=== PATIENT | female | born 1980 ===

== ENCOUNTER 2016-10-21 19:11 | Emergency (ER) | payer MEDICAID ==
[2016-10-21 19:31] VITALS: RESP 16; O2SAT 99
[2016-10-21] MEDS ORDERED: Sodium Chloride 0.9% 1,000 ML IV ONE (20:32)
[2016-10-21 20:46] LABS: SQUAMOUS EPITHIAL 15 /hpf (0-5); URINE BILIRUBIN NEGATIVE (NEGATIVE); URINE BLOOD NEGATIVE (NEGATIVE); URINE CLARITY Hazy (Clear); URINE COLOR Yellow (YELLOW); URINE GLUCOSE (UA) NORMAL (Normal); URINE LEUKOCYTE ESTERASE TRACE Leu/uL (Negative); URINE NITRATE NEGATIVE (NEGATIVE); URINE PROTEIN NEGATIVE (NEGATIVE); URINE UROBILINOGEN NORMAL mg/dL (0.2-1.0)
[2016-10-21 20:48] LABS: HCG,QUALITATIVE URINE NEGATIVE (NEGATIVE)
[2016-10-21 20:51] LABS: BASO % 0.4 % (0.0-2.0); EOS # 0.1 K/uL (0.0-0.7); EOS % 1.8 % (0.0-4.0); HEMOGLOBIN 13.8 g/dL (11.0-16.0); LYMPH # 2.2 K/uL (1.0-4.3); LYMPH % 27.1 % (20.0-40.0); MEAN CORPUSCULAR HGB CONC 33.7 g/dL (33.0-37.0); MEAN PLATELET VOLUME 8.6 fL (7.2-11.7); MONO # 0.5 K/uL (0.0-0.8); MONO % 6.1 % (0.0-10.0); NEUT # 5.3 K/uL (1.8-7.0); NEUT % 64.6 % (50.0-75.0); NRBC % 0.1 % (0.0-2.0); RBC 4.46 Mil/uL (3.80-5.20); WHITE BLOOD COUNT 8.2 K/uL (4.8-10.8)
[2016-10-21 20:59] LABS: ALBUMIN 4.4 g/dL (3.5-5.0)
[2016-10-21 21:02] LABS: ALB/GLOB RATIO 1.1 (1.0-2.1); AST/SGOT 124 U/L (14-36); BLOOD UREA NITROGEN 12 mg/dL (7-17); GFR AFRICAN-AMERICAN > 60; GFR NON-AFRICAN AMERICAN > 60
[2016-10-21 21:03] LABS: ALT/SGPT 251 U/L (9-52); CALCIUM 9.3 mg/dl (8.6-10.4); LIPASE 38 U/L (23-300)
--- NOTE | 2016-10-21 22:17 | C.PDOC ---
History Of Present Illness Pt was evaluated by her PMD a few days ago and had labs that showed elevated transaminase levels and US that showed gallstones. Pt c/o upper abdominal pain. 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 History/Exam Limitations: language barrier Onset/Duration Of Symptoms: Days (2) Current Symptoms Are (Timing): Still Present Severity: Moderate Location Of Pain/Discomfort: RUQ, Epigastric, LUQ Quality Of Discomfort: Unable To Describe, "Pain" Associated Symptoms: Nausea, Vomiting Exacerbating Factors: Food Alleviating Factors: None Additional History Per: Prior Records Past Medical History Reviewed: Historical Data, Nursing Documentation, Vital Signs Vital Signs: Last Vital Signs Temp 98.6 F 10/21/16 19:27 Pulse 98 H 10/21/16 19:27 Resp 16 10/21/16 19:27 BP 120/87 10/21/16 19:27 Pulse Ox 99 10/21/16 22:17 - Medical History PMH: Gall Bladder Disease, Hypercholesterolemia Surgical History: No Surg Hx Family History: States: Unknown Family Hx - Social History Hx Alcohol Use: No Hx Substance Use: No Review Of Systems Except As Marked, All Systems Reviewed And Found Negative. Constitutional: Negative for: Weakness Cardiovascular: Negative for: Chest Pain Respiratory: Negative for: Cough, Shortness of Breath Gastrointestinal: Positive for: Nausea, Vomiting, Abdominal Pain. Negative for : Diarrhea Genitourinary: Negative for: Dysuria Musculoskeletal: Negative for: Neck Pain Skin: Negative for: Rash Neurological: Negative for: Weakness, Numbness, Seizures, Altered Mental Status Physical Exam - Physical Exam Appears: Non-toxic, No Acute Distress Skin: Normal Color, Warm, Dry, No Rash Head: Atraumatic, Normacephalic Eye(s): bilateral: Normal Inspection, PERRL, EOMI Neck: Normal ROM, Supple Cardiovascular: Rhythm Regular Respiratory: Normal Breath Sounds, No Accessory Muscle Use Gastrointestinal/Abdominal: Soft, Tenderness (Upper abdomen), No Guarding, No Rebound Back: No CVA Tenderness Extremity: Normal ROM Neurological/Psych: Oriented x3, Normal Motor, Normal Sensation ED Course And Treatment - Laboratory Results Result Diagrams: 10/21/16 20:47 10/21/16 20:47 Lab Interpretation: Abnormal Interpretation Of Abnormal: Elevated transaminase levels Urine POC: Negative O2 Sat by Pulse Oximetry: 99 Pulse Ox Interpretation: Normal - CT Scan/US RUQ Sono Other Rad Studies (CT/US): Read By Radiologist, Radiology Report Reviewed CT/US Interpretation: IMPRESSION: 1. Cholelithiasis. 2. Hepatic steatosis. 3. Remainder of findings as above. Progress - Interventions Interventions:: Observation, Intravenous fluid - Medications Administered Intravenous: Antiemetic, H-2 natalee - Data Reviewed Data Reviewed: Lab, Diagnostic imaging, Old records - Patient Status Patient status: Mostly improved - Continuity of Care Discussed patient case with:: Patient, Family-HIPPA compliant, ED Nurse - Patient Plan Patient Plan: Discharge, F/U with PCP, Continue present meds Disposition Counseled Patient/Family Regarding: Studies Performed, Diagnosis, Need For Followup, Rx Given - Disposition Referrals: Cristel Barron MD [Medical Doctor] - Disposition: HOME/ ROUTINE Disposition Time: 23:14 Condition: IMPROVED Additional Instructions: Follow up with your doctor for further evaluation and treatment. Return to the ER if you develop fever, worsening of symptoms or if you have any other concerns. Prescriptions: Metoclopramide [Reglan] 1 tab PO TID PRN #15 tab PRN Reason: Nausea/Vomiting Pantoprazole Sodium [Protonix] 40 mg PO DAILY #14 ect Instructions: Non-Alcoholic Fatty Liver Disease (ED), Gallstones (ED) Print Language: LATVIAN - Clinical Impression Clinical Impression: Cholelithiasis, Fatty liver, Upper abdominal pain, Elevated transaminase level
--- NOTE | 2016-10-21 23:03 | US ---
EXAM: US Abdomen Limited, Right Upper Quadrant CLINICAL HISTORY: 35 years old, female; Pain; Abdominal pain; Epigastric; Additional info: Upper abd pain. H/o gallstones. TECHNIQUE: Real-time ultrasound of the right upper quadrant with image documentation. COMPARISON: No relevant prior studies available. FINDINGS: Liver: The liver measures 15.4 CM longitudinally. There is increased echogenicity consistent with fatty replacement. No intrahepatic bile duct dilation. Portal vein is patent with normal direction of flow. Gallbladder: Cholelithiasis. No gallbladder wall thickening. No sonographic Brown's sign. Common bile duct: Common bile duct measures 3 mm which is normal. No stones. No dilation. Pancreas: The pancreas is not visualized. Right kidney: Unremarkable. No stones. No solid mass. No hydronephrosis. Aorta: IVC and aorta are unremarkable. No aneurysm. IMPRESSION: 1. Cholelithiasis. 2. Hepatic steatosis. 3. Remainder of findings as above.
[2016-10-21 23:39] VITALS: BP 112/68; PULSE 91; TEMP 98
== END 2016-10-21 23:42 | disposition home or self-care (01) ==
LOC: C.ER 19:11
DX: K80.20 Calculus of gallbladder without cholecystitis without obstruction (principal); K76.0 Fatty (change of) liver, not elsewhere classified; R74.0 Nonspecific elevation of levels of transaminase and lactic acid dehydrogenase [LDH]
CPT/HCPCS: 76705; 80053; 81001; 83690; 84703; 85025; 96361; 96374; 96375; 99284; J2765; J7040

== ENCOUNTER 2017-01-08 19:25 | Observation (INO) | payer MEDICAID ==
[2017-01-08] MEDS ORDERED: Sodium Chloride 0.9% 1,000 ML IV ONE (19:58)
--- NOTE | 2017-01-08 19:58 | C.PDOC ---
History Of Present Illness Patient with history of gallstones presents to the ED with complaints of RUQ pain with associated nausea and vomiting that has been worsening over the last several days. Patient was seen at another hospital and had a full work up performed. She also presented to [facility] ED with similar presentation, US showed gallstones. Patient denies fever, chills, or diarrhea. Time Seen by Provider: 01/08/17 19:57 Chief Complaint (Nursing): Abdominal Pain History Per: Patient History/Exam Limitations: no limitations Onset/Duration Of Symptoms: Persistent, Worse Since (several days ) Current Symptoms Are (Timing): Still Present Severity: Moderate Pain Scale Rating Of: 5 Location Of Pain/Discomfort: RUQ Radiation Of Pain To:: None Quality Of Discomfort: "Pain" Past Medical History Reviewed: Historical Data, Nursing Documentation, Vital Signs Vital Signs: Last Vital Signs Temp 97.8 F 01/08/17 23:06 Pulse 86 01/08/17 23:06 Resp 20 01/08/17 23:06 BP 124/82 01/08/17 23:06 Pulse Ox 99 01/08/17 23:06 - Medical History PMH: Gall Bladder Disease, Hypercholesterolemia Family History: States: Unknown Family Hx - Social History Hx Alcohol Use: No Hx Substance Use: No Review Of Systems Constitutional: Negative for: Fever, Chills Cardiovascular: Negative for: Chest Pain Gastrointestinal: Positive for: Nausea, Vomiting, Abdominal Pain. Negative for : Diarrhea Physical Exam - Physical Exam Appears: Non-toxic, No Acute Distress Skin: Warm, Dry Head: Atraumatic Eye(s): bilateral: Normal Inspection Oral Mucosa: Moist Neck: Supple Chest: Symmetrical, No Deformity Cardiovascular: Rhythm Regular, No Murmur Respiratory: No Rales, No Rhonchi, No Wheezing Gastrointestinal/Abdominal: Bowel Sounds (good bowel sounds ), Soft, No Tenderness, No Distention, No Guarding, Rebound (mild rebound ) Back: No CVA Tenderness Extremity: Normal ROM, No Tenderness Extremity: Bilateral: Atraumatic Pulses: Left Dorsalis Pedis: Normal, Right Dorsalis Pedis: Normal Neurological/Psych: Oriented x3 Gait: Steady ED Course And Treatment - Laboratory Results Result Diagrams: 01/08/17 20:17 01/08/17 20:17 O2 Sat by Pulse Oximetry: 99 (RA) Disposition Discussed With : Lance Long Comment: accepted the pt on rv and took over the care at 1AM Doctor Will See Patient In The: ED Counseled Patient/Family Regarding: Studies Performed, Diagnosis - Disposition Disposition: HOSPITALIZED Disposition Time: 19:58 Condition: FAIR Forms: [facility] (Belizean) - Clinical Impression Clinical Impression: Abdominal pain, Cholelithiasis - Scribe Statement The provider has reviewed the documentation as recorded by the Scribe Veronica Tao All medical record entries made by the Scribe were at my direction and personally dictated by me. I have reviewed the chart and agree that the record accurately reflects my personal performance of the history, physical exam, medical decision making, and the department course for this patient. I have also personally directed, reviewed, and agree with the discharge instructions and disposition. Decision To Admit - Pt Status Changed To: Hospital Disposition Of: Inpatient - Admit Certification Admit to Inpatient:: After my assessment, the patient will require hospitalization for at least two midnights. This is because of the severity of symptoms shown, intensity of services needed, and/or the medical risk in this patient being treated as an outpatient. - InPatient: Physician Admission Certification:: After my assessment, the patient will require hospitalization for at least two midnights. This is because of the severity of symptoms shown, intensity of services needed, and/or the medical risk in this patient being treated as an outpatient. - . Bed Request Type: Regular Admitting Physician: Lance Long Patient Diagnosis: Abdominal pain, Cholelithiasis
[2017-01-08 20:28] LABS: BASO % 0.5 % (0.0-2.0); EOS # 0.1 K/uL (0.0-0.7); HEMATOCRIT 39.4 % (34.0-47.0); LYMPH % 19.5 % (20.0-40.0); MEAN CELL VOLUME 91.1 fL (81.0-99.0); MEAN CORPUSCULAR HEMOGLOBIN 31.8 pg (27.0-31.0); MEAN CORPUSCULAR HGB CONC 34.9 g/dL (33.0-37.0); MEAN PLATELET VOLUME 8.4 fL (7.2-11.7); MONO # 0.7 K/uL (0.0-0.8); MONO % 6.6 % (0.0-10.0); RED CELL DISTRIBUTION WIDTH 13.2 % (11.5-14.5); WHITE BLOOD COUNT 10.1 K/uL (4.8-10.8)
[2017-01-08 20:29] LABS: CHLORIDE 99 mmol/L (98-107)
[2017-01-08 20:30] LABS: POTASSIUM 3.7 mmol/L (3.6-5.2); SODIUM 138 mmol/L (132-148)
[2017-01-08 20:32] LABS: ALB/GLOB RATIO 1.3 (1.0-2.1); ALKALINE PHOSPHATASE 75 U/L (38-126); ALT/SGPT 122 U/L (9-52); AST/SGOT 55 U/L (14-36); BILIRUBIN,TOTAL 0.7 mg/dL (0.2-1.3); BLOOD UREA NITROGEN 11 mg/dL (7-17); CARBON DIOXIDE 24 mmol/L (22-30); GFR AFRICAN-AMERICAN > 60; GLUCOSE,RANDOM 80 mg/dL (65-105); TOTAL PROTEIN 7.6 g/dL (6.3-8.3)
[2017-01-08 20:33] LABS: CALCIUM 8.5 mg/dl (8.6-10.4)
[2017-01-08 20:40] LABS: RBC URINE 3 /hpf (0-3); URINE BACTERIA OCC (<OCC); URINE BILIRUBIN NEGATIVE (NEGATIVE); URINE COLOR Yellow (YELLOW); URINE GLUCOSE (UA) NORMAL (Normal); URINE KETONE NEGATIVE (NEGATIVE); URINE LEUKOCYTE ESTERASE TRACE Leu/uL (Negative); URINE PROTEIN NEGATIVE (NEGATIVE); URINE UROBILINOGEN NORMAL mg/dL (0.2-1.0); WBC URINE 4 /hpf (0-5)
[2017-01-08 20:41] LABS: INR 1.1
[2017-01-08 20:46] LABS: URINE BLOOD TRACE (NEGATIVE)
[2017-01-08] MEDS ORDERED: Sodium Chloride 0.9% 100 ML ONE (21:21)
--- NOTE | 2017-01-08 22:41 | US ---
EXAM: US Abdomen Limited, Right Upper Quadrant CLINICAL HISTORY: 36 years old, female; Pain; Abdominal pain; Flank; Right upper quadrant (ruq); Additional info: Ruq pain, HX of gallstones TECHNIQUE: Real-time ultrasound of the right upper quadrant with image documentation. COMPARISON: No relevant prior studies available. FINDINGS: Liver: The liver is increased in echogenicity and size measuring 16.9 cm in longitudinal dimension. No intrahepatic bile duct dilation. Gallbladder: Multiple stones are identified within the decompressed gallbladder, which is otherwise unremarkable. Common bile duct: No stones. No dilation, measuring 4.6 mm. Pancreas: Visualization of the pancreas is limited by overlying bowel gas. Right kidney: Unremarkable in echogenicity and size measuring 12.0 x 4.4 x 5.5 cm. No obstructing stones. No solid mass. No hydronephrosis. IMPRESSION: Fatty infiltration of an enlarged liver. Cholelithiasis. Otherwise, unremarkable sonographic evaluation of the right upper quadrant, as detailed above. Limited evaluation of the pancreas, secondary to overlying bowel gas.
[2017-01-08] MEDS ORDERED: Lactated Ringer's 1,000 ML IV SCH (23:45)
[2017-01-08] MEDS ORDERED: Morphine 4 MG/ML VIAL IVP PRN (23:50)
--- NOTE | 2017-01-09 00:37 | CP.PCM.HP ---
<Ella Woodward - Last Filed: 01/09/17 00:32> History of Present Illness - History of Present Illness History of Present Illness: CC: RUQ abdominal pain, nausea, vomiting Patient is a 36F who denies significant PMH who was sent to the ER by her primary physician for evaluation for cholecystitis. Patient reports intermittent RUQ pain and nausea with eating greasy food for 6 months, worsening severely of past two days. Patient states the pain is cramping in nature and she has had nausea, multiple episodes of non-bilious emesis and diarrhea over the past two days. Patient states there is a small amount of blood in her emesis after she had emptied her stomach. Patient also report heartburn like symptoms. Patient denies hematochezia, melena, fevers, chills, chest pain, SOB, cough, dysuria, hematuria, or any other symptoms. Pmh: denies PSH: denies All: denies Present on Admission - Present on Admission Any Indicators Present on Admission: No Review of Systems - Review of Systems All systems: reviewed and no additional remarkable complaints except (as per HPI ) - Constitutional Constitutional: Anorexia. absent: Chills, Fever - Cardiovascular Cardiovascular: absent: Chest Pain, Chest Pain at Rest, Dyspnea - Respiratory Respiratory: absent: Cough, Dyspnea, Dyspnea on Exertion - Gastrointestinal Gastrointestinal: Abdominal Pain, Cramping, Diarrhea, Heartburn, Nausea, Vomiting. absent: Coffee Ground Emesis, Constipation, Hematochezia, Melena - Genitourinary Genitourinary: absent: Change in Urinary Stream, Dysuria, Hematuria - Musculoskeletal Musculoskeletal: Back Pain (right mid-low back pain). absent: Numbness, Tingling - Neurological Neurological: absent: Numbness, Tingling, Weakness - Psychiatric Psychiatric: absent: Anxiety Past Patient History - Past Medical History & Family History Past Medical History?: Yes Past Family History: Reviewed and not pertinent - Past Social History Smoking Status: Never Smoked - CARDIAC Hx Hypercholesterolemia: Yes - PULMONARY Hx Respiratory Disorders: No - NEUROLOGICAL Hx Neurological Disorder: No - HEENT Hx HEENT Problems: No - RENAL Hx Chronic Kidney Disease: No - ENDOCRINE/METABOLIC Hx Endocrine Disorders: No - HEMATOLOGICAL/ONCOLOGICAL Hx Blood Disorders: No - INTEGUMENTARY Hx Dermatological Problems: No - MUSCULOSKELETAL/RHEUMATOLOGICAL Hx Musculoskeletal Disorders: No - GASTROINTESTINAL Hx Gall Bladder Disease: Yes - PSYCHIATRIC Hx Substance Use: No Meds Allergies/Adverse Reactions: Allergies Allergy/AdvReac Type Severity Reaction Status Date / Time No Known Allergies Allergy Unverified 10/21/16 19:31 Physical Exam - Constitutional Appears: Non-toxic, No Acute Distress - Head Exam Head Exam: ATRAUMATIC, NORMOCEPHALIC - Eye Exam Eye Exam: Normal appearance. absent: Conjunctival injection, Scleral icterus - ENT Exam ENT Exam: Mucous Membranes Moist, Normal Oropharynx - Respiratory Exam Respiratory Exam: NORMAL BREATHING PATTERN. absent: Accessory Muscle Use, Respiratory Distress - Cardiovascular Exam Cardiovascular Exam: RRR - GI/Abdominal Exam GI & Abdominal Exam: Soft, Tenderness (RUQ>epigastrium. ). absent: Distended, Mass, Rebound Additional comments: positive eli's sign - Extremities Exam Extremities exam: Positive for: pedal pulses present. Negative for: calf tenderness, pedal edema - Back Exam Back exam: NORMAL INSPECTION. absent: CVA tenderness (L), CVA tenderness (R) - Neurological Exam Neurological exam: Alert, Oriented x3 - Psychiatric Exam Psychiatric exam: Normal Affect, Normal Mood - Skin Skin Exam: Dry, Intact, Normal Color, Warm Results - Vital Signs Recent Vital Signs: Last Vital Signs Temp 97.8 F 01/08/17 23:06 Pulse 86 01/08/17 23:06 Resp 20 01/08/17 23:06 BP 124/82 01/08/17 23:06 Pulse Ox 99 01/08/17 23:06 - Labs Result Diagrams: 01/08/17 20:17 01/08/17 20:17 Labs: Laboratory Results - last 24 hr 01/08/17 01/08/17 01/08/17 20:05 20:17 20:17 WBC 10.1 RBC 4.32 Hgb 13.8 Hct 39.4 MCV 91.1 MCH 31.8 H MCHC 34.9 RDW 13.2 Plt Count 230 MPV 8.4 Neut % (Auto) 72.4 Lymph % (Auto) 19.5 L Knox % (Auto) 6.6 Eos % (Auto) 1.0 Baso % (Auto) 0.5 Neut # 7.3 H Lymph # 2.0 Knox # 0.7 Eos # 0.1 Baso # 0.0 PT 12.7 H INR 1.1 APTT 33 Sodium Potassium Chloride Carbon Dioxide Anion Gap BUN Creatinine Est GFR ( Amer) Est GFR (Non-Af Amer) Random Glucose Calcium Total Bilirubin AST ALT Alkaline Phosphatase Total Protein Albumin Globulin Albumin/Globulin Ratio Lipase Urine Color Yellow Urine Clarity Hazy Urine pH 5.0 Ur Specific [place] 1.013 Urine Protein Negative Urine Glucose (UA) Normal Urine Ketones Negative Urine Blood Trace H Urine Nitrate Negative Urine Bilirubin Negative Urine Urobilinogen Normal Ur Leukocyte Esterase Trace Urine WBC (Auto) 4 Urine RBC (Auto) 3 Ur Squamous Epith Cells 9 H Urine Bacteria Occ H Urine HCG, Qual Negative 01/08/17 20:17 WBC RBC Hgb Hct MCV MCH MCHC RDW Plt Count MPV Neut % (Auto) Lymph % (Auto) Knox % (Auto) Eos % (Auto) Baso % (Auto) Neut # Lymph # Knox # Eos # Baso # PT INR APTT Sodium 138 Potassium 3.7 Chloride 99 Carbon Dioxide 24 Anion Gap 19 BUN 11 Creatinine 0.6 L Est GFR ( Amer) > 60 Est GFR (Non-Af Amer) > 60 Random Glucose 80 Calcium 8.5 L Total Bilirubin 0.7 AST 55 H ALT 122 H D Alkaline Phosphatase 75 Total Protein 7.6 Albumin 4.3 Globulin 3.3 Albumin/Globulin Ratio 1.3 Lipase 26 Urine Color Urine Clarity Urine pH Ur Specific [place] Urine Protein Urine Glucose (UA) Urine Ketones Urine Blood Urine Nitrate Urine Bilirubin Urine Urobilinogen Ur Leukocyte Esterase Urine WBC (Auto) Urine RBC (Auto) Ur Squamous Epith Cells Urine Bacteria Urine HCG, Qual Assessment & Plan - Assessment and Plan (Free Text) Assessment: 36F with no signfican PMH or PSH with RUQ pain and vomiting, Acute cholecystits vs. exacerbation of chronic biliary colic vs. gastroenteritis Plan: - given US findings of gallstones and mild pericholecystic fluid and patient's clinical history, acute cholecystits is likely - Admit under observation for IV antibiotics, fluid resuscitation, and possible OR - Keep patient NPO - IVF - PRN pain and nausea medication - Replete electrolytes as needed - Trend CBC/CMP - Further recs regarding possible OR for cholecystectomy per Dr. Mercedes Woodward, PGY2 <Lance Long - Last Filed: 01/14/17 18:00> Results - Vital Signs Recent Vital Signs: Last Vital Signs Temp 98.1 F 01/09/17 15:00 Pulse 93 H 01/09/17 15:00 Resp 20 01/09/17 15:00 BP 153/70 H 01/09/17 15:00 Pulse Ox 97 01/09/17 15:00 - Labs Result Diagrams: 01/09/17 06:23 01/09/17 06:23 Attending/Attestation - Attestation I have personally seen and examined this patient.: Yes I have fully participated in the care of the patient.: Yes I have reviewed all pertinent clinical information: Yes Notes (Text): 01/14/17 17:58 Pt was seen and examined at bedside Pt with Gallstones and Gastroenteritis HIDA scan is negative for Cholecystitis Abdomen soft, mild tender Hospitalist consult appreciated Pt can be DC home on Po antibiotics f.u with PMD No need for any surgical intervention at present Plan d.w pt in detail Risk and benefit explained in detail.
[2017-01-09] MEDS ORDERED: Piperacillin/Tazobact 3.375 gm 100 ML IVPB ONE (01:00)
[2017-01-09] MEDS ORDERED: Lactated Ringer's 1,000 ML ONE (01:00)
[2017-01-09] MEDS: Piperacillin/Tazobact 3.375 GM in Sodium Chloride 100 ML IVPB SCH ×3 (01:11→12:01)
[2017-01-09 03:41] VITALS: RESP 20
[2017-01-09 07:30] LABS: BASO % 0.3 % (0.0-2.0); EOS % 1.5 % (0.0-4.0); HEMATOCRIT 37.3 % (34.0-47.0); LYMPH % 26.1 % (20.0-40.0); MEAN CELL VOLUME 92.2 fL (81.0-99.0); MEAN CORPUSCULAR HEMOGLOBIN 32.1 pg (27.0-31.0); MEAN CORPUSCULAR HGB CONC 34.9 g/dL (33.0-37.0); MEAN PLATELET VOLUME 8.9 fL (7.2-11.7); MONO % 7.3 % (0.0-10.0); RED CELL DISTRIBUTION WIDTH 13.2 % (11.5-14.5); WHITE BLOOD COUNT 7.9 K/uL (4.8-10.8)
[2017-01-09 07:31] LABS: EOS # 0.1 K/uL (0.0-0.7); MONO # 0.6 K/uL (0.0-0.8)
[2017-01-09 09:31] LABS: CHLORIDE 103 mmol/L (98-107); POTASSIUM 3.9 mmol/L (3.6-5.2); SODIUM 141 mmol/L (132-148)
[2017-01-09 09:33] LABS: AST/SGOT 62 U/L (14-36); BILIRUBIN,TOTAL 0.9 mg/dL (0.2-1.3); CARBON DIOXIDE 23 mmol/L (22-30); GFR AFRICAN-AMERICAN > 60
[2017-01-09 09:34] LABS: ALKALINE PHOSPHATASE 75 U/L (38-126); ALT/SGPT 111 U/L (9-52); BLOOD UREA NITROGEN 10 mg/dL (7-17); CALCIUM 8.6 mg/dl (8.6-10.4); GLUCOSE,RANDOM 102 mg/dL (65-105); TOTAL PROTEIN 7.7 g/dL (6.3-8.3)
--- NOTE | 2017-01-09 11:36 | NM ---
PROCEDURE: Nuclear Medicine Hepatobiliary Scan HISTORY: ruq pain, cholelithiasis COMPARISON: None available. TECHNIQUE: 5.1 mCi of technetium 99m Mebrofenin was administered intravenously. Planar images of the abdomen were obtained at 5 min intervals to 60 mins. Delayed images were also obtained. FINDINGS: LIVER: Timely and homogenous uptake. COMMON BILE DUCT: identified at 15 mins. GALLBLADDER: identified at 10 mins. SMALL BOWEL: Identified at 15 mins. IMPRESSION: Normal Hepatobiliary Scan. The cystic duct is patent.
--- NOTE | 2017-01-09 13:23 | CP.PCM.PN ---
Addendum entered and electronically signed by Fiorella Gardiner DO 01/09/17 15:04: please disregard and read Consult note for Dr. Davon Hicks Original Note: Subjective - Date & Time of Evaluation Date of Evaluation: 01/09/17 Time of Evaluation: 13:36 - Subjective Subjective: Internal Medicine Consult for Dr. Hicks 36 y/o female patient presents with abdominal pain x2 days with no past medical history. Pt was instructed by PMD to come to ED due to extreme pain in RUQ. Pt stated she has had abdominal discomfort for the past 6 months when eating fatty foods. Pt complains of nausea that started two days ago. Pt stated she vomited for two days before arrival at hospital. Pt stated there was one incident of blood-tinged vomit. Pt stated she had not been able to eat for two days. Patient also mentions having several bowel movement of small stool today described as normal in color, just small in caliber. Pt denied diarrhea. PMH: Denied PSH: Denied Social Hx: Denied tobacco, alcohol, and illicit drug use Family Hx: mother diabetes, grandmother cancer Allergies: NKDA PMD: Dr. Motley in [place] Objective - Vital Signs/Intake and Output Vital Signs (last 24 hours): Temp Pulse Resp BP Pulse Ox 98.2 F 75 20 108/71 98 01/09/17 07:05 01/09/17 07:05 01/09/17 07:05 01/09/17 07:05 01/09/17 07:05 Intake and Output: 01/09/17 01/09/17 06:59 18:59 Intake Total 1500 Output Total 200 Balance 1300 - Medications Medications: Current Medications Acetaminophen (Tylenol 325mg Tab) 650 mg PO Q6 PRN PRN Reason: Fever >100.4 F Lactated Ringer's (Lactated Ringer's) 1,000 mls @ 100 mls/hr IV .Q10H MARCUS Stop: 01/10/17 23:46 Last Admin: 01/09/17 01:10 Dose: 100 mls/hr Piperacillin Sod/Tazobactam (Sod 3.375 gm/ Sodium Chloride) 100 mls @ 200 mls/ hr IVPB Q6H MARCUS Last Admin: 01/09/17 12:01 Dose: 200 mls/hr Metoclopramide HCl (Reglan) 10 mg IVP Q6 PRN PRN Reason: Nausea/Vomiting Morphine Sulfate (Morphine) 6 mg IVP STAT PRN PRN Reason: Pain, severe (8-10) Morphine Sulfate (Morphine) 4 mg IVP Q4 PRN PRN Reason: Pain, moderate (4-7) Pantoprazole Sodium (Protonix Inj) 40 mg IVP Q12H MARCUS Last Admin: 01/09/17 12:14 Dose: 40 mg Pneumococcal Polyvalent Vaccine (Pneumovax 23 Vaccine) 0.5 ml IM .ONCE ONE Stop: 01/12/17 10:01 - Labs Labs: 01/09/17 06:23 01/09/17 06:23 PT 12.7 SECONDS (9.7-12.2) H 01/08/17 20:17 INR 1.1 01/08/17 20: APTT 33 SECONDS (21-34) 01/08/17 20:17 - Constitutional Appears: Non-toxic - Head Exam Head Exam: NORMAL INSPECTION - Eye Exam Eye Exam: EOMI - ENT Exam ENT Exam: Mucous Membranes Moist - Neck Exam Neck Exam: Full ROM. absent: Tenderness - Respiratory Exam Respiratory Exam: NORMAL BREATHING PATTERN. absent: Accessory Muscle Use, Respiratory Distress - Cardiovascular Exam Cardiovascular Exam: REGULAR RHYTHM, +S1, +S2. absent: Bradycardia, Tachycardia - GI/Abdominal Exam GI & Abdominal Exam: Soft. absent: Tenderness - Extremities Exam Extremities Exam: Full ROM. absent: Pedal Edema - Neurological Exam Neurological Exam: Alert, Awake, CN II-XII Intact, Oriented x3 - Psychiatric Exam Psychiatric exam: Normal Affect, Normal Mood - Skin Skin Exam: Dry, Intact, Normal Color, Warm Assessment and Plan - Assessment and Plan (Free Text) Assessment: Gastritis? fluid hydration, monitor nausea and vomiting advance diet per primary, current diet: Regular fluid hydration: LR @ 100 Biliary colic monitor LFTs negative HIDA cholelithiasis on abdominal US Mid-epigastric pain to back stat lipase follow up Frequency of stool, increased. small caliber, normal in color and consistency follow up stool studies ova and parasites times 3 fecal leukocytes c diff toxin f/u stool culture, gram stain Pain consider administration of zofran prior to giving pain medication to decrease nausea Morphine may exacerbate nausea symptoms Fiorella Gardiner, DO PGY1
--- NOTE | 2017-01-09 15:03 | CP.PCM.CON ---
Addendum entered and electronically signed by Fiorella Gardiner DO 01/09/17 15:48: Bananas Rice Apple Sauce Whole Wheat toast Cleared for discharge on our perspective. Dr. Hicks spoke with Dr. Long, and Nurse Nataly patient is tolerating diet. Patient states she had watery diarrhea, but is stable for discharge. Original Note: <Fiorella Gardiner - Last Filed: 01/09/17 15:03> History of Present Illness - History of Present Illness History of Present Illness: Internal Medicine Consult for Dr. Hicks 36 y/o female patient presents with abdominal pain x2 days with no past medical history. Pt was instructed by PMD to come to ED due to extreme pain in RUQ. Pt stated she has had abdominal discomfort for the past 6 months when eating fatty foods. Pt complains of nausea that started two days ago. Pt stated she vomited for two days before arrival at hospital. Pt stated there was one incident of blood-tinged vomit. Pt stated she had not been able to eat for two days. Patient also mentions having several bowel movement of small stool today described as normal in color, just small in caliber. Pt denied diarrhea. PMH: Denied PSH: Denied Social Hx: Denied tobacco, alcohol, and illicit drug use Family Hx: mother diabetes, grandmother cancer Allergies: NKDA PMD: Dr. Motley in [place] Past Patient History - Past Medical History & Family History Past Medical History?: Yes - Past Social History Smoking Status: Never Smoked - CARDIAC Hx Cardiac Disorders: Yes Hx Hypercholesterolemia: Yes - PULMONARY Hx Respiratory Disorders: No - NEUROLOGICAL Hx Neurological Disorder: No - HEENT Hx HEENT Problems: No - RENAL Hx Chronic Kidney Disease: No - ENDOCRINE/METABOLIC Hx Endocrine Disorders: No - HEMATOLOGICAL/ONCOLOGICAL Hx Blood Disorders: No - INTEGUMENTARY Hx Dermatological Problems: No - MUSCULOSKELETAL/RHEUMATOLOGICAL Hx Musculoskeletal Disorders: No Hx Falls: No - GASTROINTESTINAL Hx Gastrointestinal Disorders: Yes Hx Gall Bladder Disease: Yes - GENITOURINARY/GYNECOLOGICAL Hx Genitourinary Disorders: No - PSYCHIATRIC Hx Psychophysiologic Disorder: No Hx Substance Use: No - SURGICAL HISTORY Hx Surgeries: No - ANESTHESIA Hx Anesthesia: No Hx Anesthesia Reactions: No Hx Malignant Hyperthermia: No Has any member of the family had a problem w/ anesthesia?: No Meds Allergies/Adverse Reactions: Allergies Allergy/AdvReac Type Severity Reaction Status Date / Time No Known Allergies Allergy Unverified 10/21/16 19:31 - Medications Medications: Current Medications Acetaminophen (Tylenol 325mg Tab) 650 mg PO Q6 PRN PRN Reason: Fever >100.4 F Lactated Ringer's (Lactated Ringer's) 1,000 mls @ 100 mls/hr IV .Q10H [facility] Stop: 01/10/17 23:46 Last Admin: 01/09/17 01:10 Dose: 100 mls/hr Piperacillin Sod/Tazobactam (Sod 3.375 gm/ Sodium Chloride) 100 mls @ 200 mls/ hr IVPB Q6H [facility] Last Admin: 01/09/17 12:01 Dose: 200 mls/hr Metoclopramide HCl (Reglan) 10 mg IVP Q6 PRN PRN Reason: Nausea/Vomiting Morphine Sulfate (Morphine) 6 mg IVP STAT PRN PRN Reason: Pain, severe (8-10) Morphine Sulfate (Morphine) 4 mg IVP Q4 PRN PRN Reason: Pain, moderate (4-7) Pantoprazole Sodium (Protonix Inj) 40 mg IVP Q12H [facility] Last Admin: 01/09/17 12:14 Dose: 40 mg Pneumococcal Polyvalent Vaccine (Pneumovax 23 Vaccine) 0.5 ml IM .ONCE ONE Stop: 01/12/17 10:01 Physical Exam - Additional Findings Additional findings: - Constitutional Appears: Non-toxic - Head Exam Head Exam: NORMAL INSPECTION - Eye Exam Eye Exam: EOMI - ENT Exam ENT Exam: Mucous Membranes Moist - Neck Exam Neck Exam: Full ROM. absent: Tenderness - Respiratory Exam Respiratory Exam: NORMAL BREATHING PATTERN. absent: Accessory Muscle Use, Respiratory Distress - Cardiovascular Exam Cardiovascular Exam: REGULAR RHYTHM, +S1, +S2. absent: Bradycardia, Tachycardia - GI/Abdominal Exam GI & Abdominal Exam: Soft. absent: Tenderness - Extremities Exam Extremities Exam: Full ROM. absent: Pedal Edema - Neurological Exam Neurological Exam: Alert, Awake, CN II-XII Intact, Oriented x3 - Psychiatric Exam Psychiatric exam: Normal Affect, Normal Mood - Skin Skin Exam: Dry, Intact, Normal Color, Warm Results - Vital Signs Recent Vital Signs: Last Vital Signs Temp 98.2 F 01/09/17 07:05 Pulse 75 01/09/17 07:05 Resp 20 01/09/17 07:05 BP 108/71 01/09/17 07:05 Pulse Ox 98 01/09/17 07:05 - Labs Result Diagrams: 01/09/17 06:23 01/09/17 06:23 Labs: Laboratory Results - last 24 hr 01/08/17 01/08/17 01/08/17 20:05 20:17 20:17 WBC 10.1 RBC 4.32 Hgb 13.8 Hct 39.4 MCV 91.1 MCH 31.8 H MCHC 34.9 RDW 13.2 Plt Count 230 MPV 8.4 Neut % (Auto) 72.4 Lymph % (Auto) 19.5 L [place] % (Auto) 6.6 Eos % (Auto) 1.0 Baso % (Auto) 0.5 Neut # 7.3 H Lymph # 2.0 [place] # 0.7 Eos # 0.1 Baso # 0.0 PT 12.7 H INR 1.1 APTT 33 Sodium Potassium Chloride Carbon Dioxide Anion Gap BUN Creatinine Est GFR ( Amer) Est GFR (Non-Af Amer) Random Glucose Calcium Total Bilirubin AST ALT Alkaline Phosphatase Total Protein Albumin Globulin Albumin/Globulin Ratio Lipase Urine Color Yellow Urine Clarity Hazy Urine pH 5.0 Ur Specific [place] 1.013 Urine Protein Negative Urine Glucose (UA) Normal Urine Ketones Negative Urine Blood Trace H Urine Nitrate Negative Urine Bilirubin Negative Urine Urobilinogen Normal Ur Leukocyte Esterase Trace Urine WBC (Auto) 4 Urine RBC (Auto) 3 Ur Squamous Epith Cells 9 H Urine Bacteria Occ H Urine HCG, Qual Negative Blood Type Antibody Screen 01/08/17 01/09/17 01/09/17 20:17 06:23 06:23 WBC 7.9 RBC 4.05 Hgb 13.0 Hct 37.3 MCV 92.2 MCH 32.1 H MCHC 34.9 RDW 13.2 Plt Count 221 MPV 8.9 Neut % (Auto) 64.8 Lymph % (Auto) 26.1 [place] % (Auto) 7.3 Eos % (Auto) 1.5 Baso % (Auto) 0.3 Neut # 5.1 Lymph # 2.0 [place] # 0.6 Eos # 0.1 Baso # 0.0 PT INR APTT Sodium 138 Potassium 3.7 Chloride 99 Carbon Dioxide 24 Anion Gap 19 BUN 11 Creatinine 0.6 L Est GFR ( Amer) > 60 Est GFR (Non-Af Amer) > 60 Random Glucose 80 Calcium 8.5 L Total Bilirubin 0.7 AST 55 H ALT 122 H D Alkaline Phosphatase 75 Total Protein 7.6 Albumin 4.3 Globulin 3.3 Albumin/Globulin Ratio 1.3 Lipase 26 Urine Color Urine Clarity Urine pH Ur Specific [place] Urine Protein Urine Glucose (UA) Urine Ketones Urine Blood Urine Nitrate Urine Bilirubin Urine Urobilinogen Ur Leukocyte Esterase Urine WBC (Auto) Urine RBC (Auto) Ur Squamous Epith Cells Urine Bacteria Urine HCG, Qual Blood Type O POSITIVE Antibody Screen Negative 01/09/17 06:23 WBC RBC Hgb Hct MCV MCH MCHC RDW Plt Count MPV Neut % (Auto) Lymph % (Auto) [place] % (Auto) Eos % (Auto) Baso % (Auto) Neut # Lymph # [place] # Eos # Baso # PT INR APTT Sodium 141 Potassium 3.9 Chloride 103 Carbon Dioxide 23 Anion Gap 20 BUN 10 Creatinine 0.7 Est GFR ( Amer) > 60 Est GFR (Non-Af Amer) > 60 Random Glucose 102 Calcium 8.6 Total Bilirubin 0.9 AST 62 H ALT 111 H Alkaline Phosphatase 75 Total Protein 7.7 Albumin 3.9 Globulin 3.8 Albumin/Globulin Ratio 1.0 Lipase Urine Color Urine Clarity Urine pH Ur Specific [place] Urine Protein Urine Glucose (UA) Urine Ketones Urine Blood Urine Nitrate Urine Bilirubin Urine Urobilinogen Ur Leukocyte Esterase Urine WBC (Auto) Urine RBC (Auto) Ur Squamous Epith Cells Urine Bacteria Urine HCG, Qual Blood Type Antibody Screen Assessment & Plan - Assessment and Plan (Free Text) Assessment: Gastritis? fluid hydration, monitor nausea and vomiting advance diet per primary, current diet: Regular fluid hydration: LR @ 100 Biliary colic monitor LFTs negative HIDA cholelithiasis on abdominal US Mid-epigastric pain to back stat lipase follow up Frequency of stool, increased. small caliber, normal in color and consistency follow up stool studies ova and parasites times 3 fecal leukocytes c diff toxin f/u stool culture, gram stain Pain consider administration of zofran prior to giving pain medication to decrease nausea Morphine may exacerbate nausea symptoms Fiorella Gardiner DO PGY1 - Date & Time Date: 01/09/17 Time: 15:04 <Davon Hicks - Last Filed: 01/09/17 18:13> Meds - Medications Medications: Current Medications Acetaminophen (Tylenol 325mg Tab) 650 mg PO Q6 PRN PRN Reason: Fever >100.4 F Lactated Ringer's (Lactated Ringer's) 1,000 mls @ 100 mls/hr IV .Q10H [facility] Stop: 01/10/17 23:46 Last Admin: 01/09/17 01:10 Dose: 100 mls/hr Piperacillin Sod/Tazobactam (Sod 3.375 gm/ Sodium Chloride) 100 mls @ 200 mls/ hr IVPB Q6H [facility] Last Admin: 01/09/17 12:01 Dose: 200 mls/hr Metoclopramide HCl (Reglan) 10 mg IVP Q6 PRN PRN Reason: Nausea/Vomiting Morphine Sulfate (Morphine) 6 mg IVP STAT PRN PRN Reason: Pain, severe (8-10) Morphine Sulfate (Morphine) 4 mg IVP Q4 PRN PRN Reason: Pain, moderate (4-7) Pantoprazole Sodium (Protonix Inj) 40 mg IVP Q12H [facility] Last Admin: 01/09/17 12:14 Dose: 40 mg Pneumococcal Polyvalent Vaccine (Pneumovax 23 Vaccine) 0.5 ml IM .ONCE ONE Stop: 01/12/17 10:01 Results - Vital Signs Recent Vital Signs: Last Vital Signs Temp 98.1 F 01/09/17 15:00 Pulse 93 H 01/09/17 15:00 Resp 20 01/09/17 15:00 BP 153/70 H 01/09/17 15:00 Pulse Ox 97 01/09/17 15:00 - Labs Result Diagrams: 01/09/17 06:23 01/09/17 06:23 Labs: Laboratory Results - last 24 hr 01/08/17 01/08/17 01/08/17 20:05 20:17 20:17 WBC 10.1 RBC 4.32 Hgb 13.8 Hct 39.4 MCV 91.1 MCH 31.8 H MCHC 34.9 RDW 13.2 Plt Count 230 MPV 8.4 Neut % (Auto) 72.4 Lymph % (Auto) 19.5 L [place] % (Auto) 6.6 Eos % (Auto) 1.0 Baso % (Auto) 0.5 Neut # 7.3 H Lymph # 2.0 [place] # 0.7 Eos # 0.1 Baso # 0.0 PT 12.7 H INR 1.1 APTT 33 Sodium Potassium Chloride Carbon Dioxide Anion Gap BUN Creatinine Est GFR ( Amer) Est GFR (Non-Af Amer) Random Glucose Calcium Total Bilirubin AST ALT Alkaline Phosphatase Total Protein Albumin Globulin Albumin/Globulin Ratio Lipase Urine Color Yellow Urine Clarity Hazy Urine pH 5.0 Ur Specific [place] 1.013 Urine Protein Negative Urine Glucose (UA) Normal Urine Ketones Negative Urine Blood Trace H Urine Nitrate Negative Urine Bilirubin Negative Urine Urobilinogen Normal Ur Leukocyte Esterase Trace Urine WBC (Auto) 4 Urine RBC (Auto) 3 Ur Squamous Epith Cells 9 H Urine Bacteria Occ H Urine HCG, Qual Negative C. difficile Ag & Toxin Blood Type Antibody Screen 01/08/17 01/09/17 01/09/17 20:17 06:23 06:23 WBC 7.9 RBC 4.05 Hgb 13.0 Hct 37.3 MCV 92.2 MCH 32.1 H MCHC 34.9 RDW 13.2 Plt Count 221 MPV 8.9 Neut % (Auto) 64.8 Lymph % (Auto) 26.1 [place] % (Auto) 7.3 Eos % (Auto) 1.5 Baso % (Auto) 0.3 Neut # 5.1 Lymph # 2.0 [place] # 0.6 Eos # 0.1 Baso # 0.0 PT INR APTT Sodium 138 Potassium 3.7 Chloride 99 Carbon Dioxide 24 Anion Gap 19 BUN 11 Creatinine 0.6 L Est GFR ( Amer) > 60 Est GFR (Non-Af Amer) > 60 Random Glucose 80 Calcium 8.5 L Total Bilirubin 0.7 AST 55 H ALT 122 H D Alkaline Phosphatase 75 Total Protein 7.6 Albumin 4.3 Globulin 3.3 Albumin/Globulin Ratio 1.3 Lipase 26 Urine Color Urine Clarity Urine pH Ur Specific [place] Urine Protein Urine Glucose (UA) Urine Ketones Urine Blood Urine Nitrate Urine Bilirubin Urine Urobilinogen Ur Leukocyte Esterase Urine WBC (Auto) Urine RBC (Auto) Ur Squamous Epith Cells Urine Bacteria Urine HCG, Qual C. difficile Ag & Toxin Blood Type O POSITIVE Antibody Screen Negative 01/09/17 01/09/17 06:23 13:29 WBC RBC Hgb Hct MCV MCH MCHC RDW Plt Count MPV Neut % (Auto) Lymph % (Auto) [place] % (Auto) Eos % (Auto) Baso % (Auto) Neut # Lymph # [place] # Eos # Baso # PT INR APTT Sodium 141 Potassium 3.9 Chloride 103 Carbon Dioxide 23 Anion Gap 20 BUN 10 Creatinine 0.7 Est GFR ( Amer) > 60 Est GFR (Non-Af Amer) > 60 Random Glucose 102 Calcium 8.6 Total Bilirubin 0.9 AST 62 H ALT 111 H Alkaline Phosphatase 75 Total Protein 7.7 Albumin 3.9 Globulin 3.8 Albumin/Globulin Ratio 1.0 Lipase 34 Urine Color Urine Clarity Urine pH Ur Specific [place] Urine Protein Urine Glucose (UA) Urine Ketones Urine Blood Urine Nitrate Urine Bilirubin Urine Urobilinogen Ur Leukocyte Esterase Urine WBC (Auto) Urine RBC (Auto) Ur Squamous Epith Cells Urine Bacteria Urine HCG, Qual C. difficile Ag & Toxin Negative Blood Type Antibody Screen Attending/Attestation - Attestation I have personally seen and examined this patient.: Yes I have fully participated in the care of the patient.: Yes I have reviewed all pertinent clinical information: Yes Notes (Text): 01/09/17 18:11 Patient was seen and examined shortly after resident. My exam was unremarkable. Patient had waterly bowel movement after my exam. Stool studies sent. Could be secondary to Gastroenteritis. She is able to tolerate her diet and take fluids by mouth. She is stable from Gastroenteritis standpoint and Medicine Team recommends BRAT diet for now and this was explained to Surgeon Dr. Pham. I also spoke with with Nurse Nataly and instructed her to provide patient with a handout on BRAT diet in [place]. Davon Hicks D.O.
--- NOTE | 2017-01-09 15:07 | CP.PCM.DIS ---
Provider - Provider Date of Admission: 01/09/17 00:29 Attending physician: Lance Long MD Consults: Dr. Silveira Time Spent in preparation of Discharge (in minutes): 30 Hospital Course - Lab Results Lab Results: Most Recent Lab Values WBC 7.9 K/uL (4.8-10.8) 01/09/17 06:23 RBC 4.05 Mil/uL (3.80-5.20) 01/09/17 06:23 Hgb 13.0 g/dL (11.0-16.0) 01/09/17 06:23 Hct 37.3 % (34.0-47.0) 01/09/17 06:23 MCV 92.2 fL (81.0-99.0) 01/09/17 06:23 MCH 32.1 pg (27.0-31.0) H 01/09/17 06:23 MCHC 34.9 g/dL (33.0-37.0) 01/09/17 06:23 RDW 13.2 % (11.5-14.5) 01/09/17 06:23 Plt Count 221 K/uL (130-400) 01/09/17 06:23 MPV 8.9 fL (7.2-11.7) 01/09/17 06:23 Neut % (Auto) 64.8 % (50.0-75.0) 01/09/17 06:23 Lymph % (Auto) 26.1 % (20.0-40.0) 01/09/17 06:23 [place] % (Auto) 7.3 % (0.0-10.0) 01/09/17 06:23 Eos % (Auto) 1.5 % (0.0-4.0) 01/09/17 06:23 Baso % (Auto) 0.3 % (0.0-2.0) 01/09/17 06:23 Neut # 5.1 K/uL (1.8-7.0) 01/09/17 06:23 Lymph # 2.0 K/uL (1.0-4.3) 01/09/17 06:23 [place] # 0.6 K/uL (0.0-0.8) 01/09/17 06:23 Eos # 0.1 K/uL (0.0-0.7) 01/09/17 06:23 Baso # 0.0 K/uL (0.0-0.2) 01/09/17 06:23 PT 12.7 SECONDS (9.7-12.2) H 01/08/17 20:17 INR 1.1 01/08/17 20:17 APTT 33 SECONDS (21-34) 01/08/17 20:17 Sodium 141 mmol/L (132-148) 01/09/17 06:23 Potassium 3.9 mmol/L (3.6-5.2) 01/09/17 06:23 Chloride 103 mmol/L (98-107) 01/09/17 06:23 Carbon Dioxide 23 mmol/L (22-30) 01/09/17 06:23 Anion Gap 20 (10-20) 01/09/17 06:23 BUN 10 mg/dL (7-17) 01/09/17 06:23 Creatinine 0.7 MG/DL (0.7-1.2) 01/09/17 06:23 Est GFR ( Amer) > 60 01/09/17 06:23 Est GFR (Non-Af Amer) > 60 01/09/17 06:23 Random Glucose 102 mg/dL (65-105) 01/09/17 06:23 Calcium 8.6 mg/dl (8.6-10.4) 01/09/17 06:23 Total Bilirubin 0.9 mg/dL (0.2-1.3) 01/09/17 06:23 AST 62 U/L (14-36) H 01/09/17 06:23 ALT 111 U/L (9-52) H 01/09/17 06:23 Alkaline Phosphatase 75 U/L (38-126) 01/09/17 06:23 Total Protein 7.7 g/dL (6.3-8.3) 01/09/17 06:23 Albumin 3.9 g/dL (3.5-5.0) 01/09/17 06:23 Globulin 3.8 gm/dL (2.2-3.9) 01/09/17 06:23 Albumin/Globulin Ratio 1.0 (1.0-2.1) 01/09/17 06:23 Lipase 26 U/L (23-300) 01/08/17 20: Urine Color Yellow (YELLOW) 01/08/17 20:05 Urine Clarity Hazy (Clear) 01/08/17 20:05 Urine pH 5.0 (5.0-8.0) 01/08/17 20:05 Ur Specific [place] 1.013 (1.003-1.030) 01/08/17 20:05 Urine Protein Negative mg/dL (NEGATIVE) 01/08/17 20:05 Urine Glucose (UA) Normal mg/dL (Normal) 01/08/17 20:05 Urine Ketones Negative mg/dL (NEGATIVE) 01/08/17 20:05 Urine Blood Trace (NEGATIVE) H 01/08/17 20:05 Urine Nitrate Negative (NEGATIVE) 01/08/17 20: Urine Bilirubin Negative (NEGATIVE) 01/08/17 20: Urine Urobilinogen Normal mg/dL (0.2-1.0) 01/08/17 20:05 Ur Leukocyte Esterase Trace Abdirashid/uL (Negative) 01/08/17 20:05 Urine WBC (Auto) 4 /hpf (0-5) 01/08/17 20:05 Urine RBC (Auto) 3 /hpf (0-3) 01/08/17 20:05 Ur Squamous Epith Cells 9 /hpf (0-5) H 01/08/17 20:05 Urine Bacteria Occ (<OCC) H 01/08/17 20:05 Urine HCG, Qual Negative (NEGATIVE) 01/08/17 20:05 Blood Type O POSITIVE 01/09/17 06:23 Antibody Screen Negative 01/09/17 06:23 - Hospital Course Hospital Course: 36yo F with no PMHx who presented to the ED for evaluation by her primary physician. She had intermittent RUQ pain with nausea associated with vomiting and diarrhea over the past 2 days. She also reported heartburn symptoms. Abdominal US showed multiple stones in the gallbladder and fatty infiltration of enlarged liver. No signs of cholecystitis. HIDA scan was done which was normal. She had no leukocytosis or fevers. A medicine consult was called and stool studies were ordered. Patient tolerated regular diet and her pain resolved. She was discharged home to follow up as an outpatient. Discharge Exam - Head Exam Head Exam: NORMAL INSPECTION - Eye Exam Eye Exam: EOMI, Normal appearance - Respiratory Exam Respiratory Exam: NORMAL BREATHING PATTERN. absent: Respiratory Distress - Cardiovascular Exam Cardiovascular Exam: +S1, +S2 - GI/Abdominal Exam GI & Abdominal Exam: Soft. absent: Distended, Firm, Guarding, Rebound, Rigid, Tenderness - Neurological Exam Neurological exam: Alert, CN II-XII Intact, Oriented x3 - Psychiatric Exam Psychiatric exam: Normal Affect, Normal Mood - Skin Skin Exam: Dry, Normal Color, Warm Discharge Plan - Follow Up Plan Condition: FAIR Disposition: HOME/ ROUTINE Instructions: Acute Abdominal Pain (DC), Acute Abdominal Pain (GEN) Additional Instructions: Follow up with Dr. Long in 1-2 weeks, call to make appointment Take full course of antibiotics as prescribed Referrals: Lance Long MD [Staff Provider] -
[2017-01-09 16:13] VITALS: BP 153/70; PULSE 93; TEMP 98.1; O2SAT 97
[2017-01-09 16:30] LABS: C DIFF TOXIN A B NEGATIVE (NEGATIVE)
[2017-01-09 19:17] LABS: FECAL LEUKOCYTES NEGATIVE (NEGATIVE)
[2017-01-12] MEDS ORDERED: Pneumococcal 23-Valent Vaccine IM ONE (10:00)
[2017-01-12] MEDS ORDERED: Influenza Vaccine 60 mcg/0.5 mL SYR (4YR UP) IM ONE (10:00)
--- NOTE | 2017-01-14 06:46 | CARD ---
APPROVED REPORT EKG Measurement Heart [id number] <Conclusion> Normal sinus rhythm Minimal voltage criteria for LVH, may be normal variant Borderline ECG
== END 2017-01-09 18:49 | disposition home or self-care (01) ==
LOC: C.ER 19:25 → C.6T 01-09 00:29 → INTOOBSV 01-09 00:29
PROVIDERS: ADMIT Surgery Surgical Critical Care; ATTEND Surgery Surgical Critical Care
DX: K80.20 Calculus of gallbladder without cholecystitis without obstruction (principal)
CPT/HCPCS: 36415; 76705; 78226; 80053; 81001; 83690; 84703; 85025; 85610; 85730; 86850; 86900; 87045; 87177; 87209; 87230; 89055; 96365; 96366; 96375; 96376; 99285; A9537; C9113; G0378; J1885; J2405; J2543; J2765; J7040; J7050; J7120